=== PATIENT | female | born 1960 | race Caucasian/White ===

== ENCOUNTER 2018-06-16 18:40 | Emergency (ER) | payer OTHER ==
[2018-06-16] MEDS ORDERED: Acetaminophen TAB* 325 MG PO ONE (19:59)
[2018-06-16] MEDS ORDERED: NS 0.9% 1000 ML* 1,000 ML IV ONE ×2 (19:59→20:01)
[2018-06-16] MEDS ORDERED: Ketorolac INJ* 30 MG/ML 1 ML VIAL IV PUSH ONE (19:59)
[2018-06-16] MEDS ORDERED: Metoclopramide IV* 5 MG/ML 2 ML VIAL IV SLOW PU ONE (20:00)
[2018-06-16 20:21] LABS: ABS Basophils 0.1 10^3/ul (0-0.2); ABS Eosinophils 0 10^3/ul (0-0.6); ABS Lymphocytes 1.4 10^3/ul (1.0-4.8); ABS Monocytes 0.9 10^3/ul (0-0.8); ABS Neutrophils 9.2 10^3/ul (1.5-7.7); ABS Nucleated RBC 0 10^3/ul; Eosinophil % 0.2 % (0-6); Hematocrit 36 % (35-47); Lymphocyte % 12.1 % (25-47); Mean Corpuscular HGB Conc 34 g/dl (31-36); Mean Corpuscular Hemoglobin 29 pg (27-31); Mean Corpuscular Volume 85 fL (80-97); Mean Platelet Volume 8.3 um3 (7.4-10.4); Nucleated Red Blood Cells % 0; Platelet Count 293 10^3/ul (150-450); Red Cell Distribution Width 14 % (10.5-15); White Blood Count 11.7 10^3/ul (3.5-10.8)
[2018-06-16 20:35] LABS: EGFR Non-African American 68.5 (>60)
--- NOTE | 2018-06-16 20:58 | ED ---
Abdominal Pain/Female - HPI Summary HPI Summary: This is wellington Andersonin documenting for attending Dr. Jasvir Kirk MD. A 57 y/o female presents to ED c/o RLQ abdominal pain. According to the patient , she has been experiencing abdominal pressure since 06/11/2018, however the symptoms never progressed. On night, she noted that she spiked a fever and the pressure worsened. Today, she experiences pain in the abdomen and intermittent fever. Pt denies any nausea, vomiting, back pain or any pain with urination, however, she noted that she has had no stool for five days (small one this morning). No major surgeries. - History of Current Complaint Chief Complaint: EDAbdPain Stated Complaint: RT LOWER QUANTRANT PAIN/FEVER Time Seen by Provider: 06/16/18 19:51 Hx Obtained From: Patient Pain Intensity: 6 Allergies/Adverse Reactions: Allergies Allergy/AdvReac Type Severity Reaction Status Date / Time No Known Allergies Allergy Verified 06/16/18 18:58 PMH/Surg Hx/FS Hx/Imm Hx Endocrine/Hematology History: Denies: Hx Diabetes Cardiovascular History: Denies: Hx Hypertension Infectious Disease History: No Infectious Disease History: Denies: Traveled Outside the [place] in Last 30 Days - Family History Known Family History: Negative: Hypertension, Diabetes - Social History Alcohol Use: None Smoking Status (MU): Former Smoker - 10 years smoker, quit 18 years ago. Review of Systems Positive: Fever - Intermittent Positive: Abdominal Pain - RLQ, Other - POSITIVE: No stool for 5 days (small one today).. Negative: Vomiting, Nausea Negative: pain Positive: Other - NEGATIVE: Back pain Physical Exam - Summary Physical Exam Summary: GENERAL: Patient is a well-developed and nourished female who is lying comfortable in the stretcher. Patient is not in any acute respiratory distress. HEAD AND FACE: No signs of trauma. No ecchymosis, hematomas or skull depressions. No sinus tenderness. EYES: PERRLA, EOMI x 2, No injected conjunctiva, no nystagmus. EARS: Hearing grossly intact. Ear canals and tympanic membranes are within normal limits. MOUTH: Oropharynx within normal limits. NECK: Supple, trachea is midline, no adenopathy, no JVD, no carotid bruit, no c- spine tenderness, neck with full ROM. CHEST: Symmetric, no tenderness at palpation LUNGS: Clear to auscultation bilaterally. No wheezing or crackles. CVS: Regular rate and rhythm, S1 and S2 present, no murmurs or gallops appreciated. ABDOMEN: Soft. No signs of distention. No rebound no guarding, and no masses palpated. Hyperactive bowel sounds. Right CVA tenderness. Bilateral lower quadrant tenderness. EXTREMITIES: FROM in all major joints, no edema, no cyanosis or clubbing. NEURO: Alert and oriented x 3. No acute neurological deficits. Speech is normal and follows commands. SKIN: Dry and warm Triage Information Reviewed: Yes Vital Signs On Initial Exam: Initial Vitals Temp Pulse Resp BP Pulse Ox 100.5 F 91 20 123/87 98 06/16/18 18:56 06/16/18 18:56 06/16/18 18:56 06/16/18 18:56 06/16/18 18:56 Vital Signs Reviewed: Yes Appearance: Positive: Well-Appearing, No Pain Distress Skin: Positive: Warm Head/Face: Positive: Normal Head/Face Inspection Eyes: Positive: Normal ENT: Positive: Normal ENT inspection Neck: Positive: Supple, Nontender Cardiovascular: Positive: Normal, RRR Abdomen Description: Positive: Soft, CVA Tenderness (L), Other: - B/L LQ tenderness Left >Right.. Negative: No Organomegaly Bowel Sounds: Positive: Present Musculoskeletal: Positive: Normal Neurological: Positive: Normal Psychiatric: Positive: Normal Diagnostics - Vital Signs Vital Signs Temp Pulse Resp BP Pulse Ox 06/16/18 18:56 100.5 F 91 20 123/87 98 - Laboratory Lab Results: Lab Results 06/16/18 06/16/18 06/16/18 Range/Units 20:09 20:09 20:10 WBC 11.7 H (3.5-10.8) 10^3/ul RBC 4.20 (4.00-5.40) 10^6/ul Hgb 12.0 (12.0-16.0) g/dl Hct 36 (35-47) % MCV 85 (80-97) fL MCH 29 (27-31) pg MCHC 34 (31-36) g/dl RDW 14 (10.5-15) % Plt Count 293 (150-450) 10^3/ul MPV 8.3 (7.4-10.4) um3 Neut % (Auto) 79.0 (38-83) % Lymph % (Auto) 12.1 L (25-47) % Hamilton % (Auto) 7.8 H (0-7) % Eos % (Auto) 0.2 (0-6) % Baso % (Auto) 0.9 (0-2) % Absolute Neuts (auto) 9.2 H (1.5-7.7) 10^3/ul Absolute Lymphs (auto) 1.4 (1.0-4.8) 10^3/ul Absolute Monos (auto) 0.9 H (0-0.8) 10^3/ul Absolute Eos (auto) 0 (0-0.6) 10^3/ul Absolute Basos (auto) 0.1 (0-0.2) 10^3/ul Absolute Nucleated RBC 0 10^3/ul Nucleated RBC % 0 Sodium 137 (135-145) mmol/L Potassium 3.8 (3.5-5.0) mmol/L Chloride 101 (101-111) mmol/L Carbon Dioxide 27 (22-32) mmol/L Anion Gap 9 (2-11) mmol/L BUN 10 (6-24) mg/dL Creatinine 0.86 (0.51-0.95) mg/dL Est GFR ( Amer) 82.9 (>60) Est GFR (Non-Af Amer) 68.5 (>60) BUN/Creatinine Ratio 11.6 (8-20) Glucose 111 H (70-100) mg/dL Lactic Acid 0.7 (0.5-2.0) mmol/L Calcium 9.4 (8.6-10.3) mg/dL Total Bilirubin 0.60 (0.2-1.0) mg/dL AST 21 (13-39) U/L ALT 17 (7-52) U/L Alkaline Phosphatase 64 (34-104) U/L C-Reactive Protein 81.57 H (<8.01) mg/L Total Protein 7.3 (6.4-8.9) g/dL Albumin 4.1 (3.2-5.2) g/dL Globulin 3.2 (2-4) g/dL Albumin/Globulin Ratio 1.3 (1-3) Lipase 44 (11.0-82.0) U/L Result Diagrams: 06/16/18 20:09 06/16/18 20:09 Lab Statement: Any lab studies that have been ordered have been reviewed, and results considered in the medical decision making process. - CT CT A/P CT Interpretation Completed By: Radiologist - No acute pathology. Probably fibroid uterus. No acute bowel pathology. No significant RLQ pathology. ED physician reviewed this radiology report. Abdominal Pain Fem Course/Dx - Course Course Of Treatment: A 57 y/o female presents to ED c/o RLQ abdominal pain. According to the patient, she has been experiencing abdominal pressure since 06/11/2018, however the symptoms never progressed. On night, she noted that she spiked a fever and the pressure worsened. Today, she experiences pain in the abdomen and intermittent fever. Pt denies any nausea, vomiting, back pain or any pain with urination, however, she noted that she has had no stool for five days (small one this morning). A CT A/P revealed no acute pathology. Probably fibroid uterus. No acute bowel pathology. No significant RLQ pathology. In the ED course, the patient recieved Tylenol, Toradol, Levaquin , Reglan and IV fluids. Patient will be discharged with a diagnosis of pyelonephritis. Pt is to follow up with PCP in 1-2 days. Pt is agreeable with this plan. - Diagnoses Provider Diagnoses: Pyelonephritis Discharge - Sign-Out/Discharge Documenting (check all that apply): Patient Departure - DISCHARGE - Discharge Plan Condition: Stable Disposition: HOME Prescriptions: Ibuprofen TAB* [Motrin TAB* 800 MG] 800 mg PO Q6H PRN #30 tab PRN Reason: Fever/Pain Levofloxacin TAB* [Levaquin TAB*] 500 mg PO DAILY #10 tab Patient Education Materials: Kidney Infection (ED) Referrals: No Primary Care Phys,NOPCP [Primary Care Provider] - [facility] – [place] [facility] REFERRAL [Outside] - 2 Days Additional Instructions: RETURN TO ED FOR ANY NEW OR WORSENING SYMPTOMS. - Billing Disposition and Condition Condition: STABLE Disposition: Home
[2018-06-16 21:42] LABS: Urine Appearance Clear; Urine Blood 1+ (Negative); Urine Color Yellow; Urine Ketones Negative (Negative); Urine Protein 1+(30 mg/dL) (Negative); Urine Red Blood Cell 1+(3-5/hpf) (Absent); Urine Specific Gravity 1.008 (1.010-1.030); Urine Urobilinogen Negative (Negative); Urine White Blood Cell 3+(>20/hpf) (Absent)
[2018-06-16] MEDS ORDERED: Levofloxacin TAB* 500 MG PO ONE (21:47)
[2018-06-16 22:14] VITALS: BP 100/65
--- NOTE | 2018-06-17 09:46 | RAD ---
INDICATION: Lower abdominal pain greater on the RIGHT. Fever, nausea. COMPARISON: No relevant prior exams available on the [facility] [place]. TECHNIQUE: Multidetector CT images were obtained from the lung bases to the ischial tuberosities. Evaluation of the viscera is limited without IV contrast. Multiplanar reformation. REPORT: Minimal RIGHT greater than LEFT dependent atelectasis. The liver, gallbladder, pancreas, and spleen are unremarkable. Negative for CT abnormality of the upper GI, small bowel, or appendix. A few diverticula of the sigmoid colon are visualized. No evidence for acute diverticulitis. Negative for ascites, free air, or significant hernias. Normal adrenal glands. Unremarkable unenhanced kidneys. Negative for conspicuous renal lesions, stones, or hydronephrosis. Unremarkable nondilated ureters and partially distended urinary bladder. Pelvic phleboliths noted. Retroverted uterus with suggestion of 3.8 cm anterior wall subserosal fibroid with partial calcification. Unremarkable adnexal regions. 1.2 cm short axis LEFT para-aortic lymph node visualized at the level of the renal vessels. No additional enlarged lymph nodes visualized. Normal diameter abdominal aorta and iliac arteries. Physiologic distention of the IVC. Negative for suspicious osseous lesions. IMPRESSION: #. Normal appendix documented. #. Minimal diverticulosis sigmoid colon without findings of acute diverticulitis. #. Negative for obstructive uropathy. #. Fibroid uterus. #. Solitary borderline enlarged LEFT para-aortic lymph node.
== END 2018-06-16 22:12 | disposition home or self-care (01) ==
LOC: ED 18:40
DX: N12 Tubulo-interstitial nephritis, not specified as acute or chronic (principal); K57.30 Diverticulosis of large intestine without perforation or abscess without bleeding; D25.9 Leiomyoma of uterus, unspecified; R59.9 Enlarged lymph nodes, unspecified; Z87.891 Personal history of nicotine dependence
CPT/HCPCS: 36415; 74176; 80053; 81003; 81015; 83605; 83690; 85025; 86140; 87040; 87086; 96361; 96374; 96375; 99283; A9270-GY; J1885; J2765